=== PATIENT | male | born 1995 | race Caucasian/White ===

== ENCOUNTER 2018-02-17 15:58 | Emergency (ER) | payer OTHER ==
[~2018-02-17] VITALS: Ht 180.3 cm; Wt 75.0 kg
[2018-02-17] MEDS ORDERED: CLIN300C3 PO (16:02)
[2018-02-17] MEDS ORDERED: DiphenhydrAMINE HCL 25 MG CAPSULE PO ONE (17:00)
[2018-02-17] MEDS ORDERED: IBUPROFEN 600 MG TABLET PO ONE (17:00)
[2018-02-17] MEDS ORDERED: PredniSONE 20 MG TABLET PO ONE (17:00)
[2018-02-17] MEDS ORDERED: SODIUM CHLORIDE 0.9% 1,000 ML IV ONE (17:30)
[2018-02-17 17:44] VITALS: BP 128/72
== END 2018-02-17 18:32 | disposition home or self-care (01) ==
LOC: EMS 15:58
DX: S80.861A Insect bite (nonvenomous), right lower leg, initial encounter (principal); F17.210 Nicotine dependence, cigarettes, uncomplicated; W57.XXXA Bitten or stung by nonvenomous insect and other nonvenomous arthropods, initial encounter; Y93.89 Activity, other specified; Y92.89 Other specified places as the place of occurrence of the external cause; Y99.8 Other external cause status
CPT/HCPCS: 96360; 99284; 99406; J7030; J7512